=== PATIENT | male | born 2000 | race Two or more races ===

== ENCOUNTER 2020-12-26 16:06 | Outpatient (CLI) | payer OTHER | END 2020-12-26 16:07 | disposition home or self-care (01) | LOC: PPH VACUNA 16:06 | DX: Z23 Encounter for immunization (principal) ==

== ENCOUNTER 2021-01-16 08:00 | Outpatient (CLI) | payer OTHER | END 2021-01-16 08:30 | disposition home or self-care (01) | LOC: PPH VACUNA 08:00 | DX: Z23 Encounter for immunization (principal) ==